=== PATIENT | male | born 1975 | race Hispanic/Latino ===

== ENCOUNTER 2017-07-07 10:51 | Emergency (ER) | payer SELFPAY ==
[2017-07-07 11:03] VITALS: BMI 27.1
[2017-07-07] MEDS ORDERED: Albuterol-Ipratrop 3 mg / 0.5 (3 ml) UD INH STA ×3 (11:14→12:53)
[2017-07-07] MEDS ORDERED: Albuterol-Ipratrop 3 mg / 0.5 (3 ml) UD ONE ×3 (11:21→12:55)
--- NOTE | 2017-07-07 11:32 | C.PDOC ---
History Of Present Illness 42 y/o male with Hx of Asthma presents to ED with complaints of worsening sob for 2 weeks. Patient reports using inhaler with limited improvement and reports cough with yellow sputum. Patient denies fever, recent steroid use, chest pain or any other complaints at this time. Time Seen by Provider: 07/07/17 11:09 Chief Complaint (Nursing): Shortness Of Breath History Per: Patient History/Exam Limitations: no limitations Onset/Duration Of Symptoms: Days Current Symptoms Are (Timing): Still Present Past Medical History Reviewed: Historical Data, Nursing Documentation, Vital Signs Vital Signs: Last Vital Signs Temp 97.9 F 07/07/17 13:31 Pulse 97 H 07/07/17 13:31 Resp 18 07/07/17 13:31 BP 129/78 07/07/17 13:31 Pulse Ox 98 07/07/17 13:31 - Medical History PMH: Asthma Surgical History: No Surg Hx - [facility] Procedures INJECT/INFUSE NEC (04/17/13) Family History: States: No Known Family Hx - Social History Hx Alcohol Use: No Hx Substance Use: No - Immunization History Hx Tetanus Toxoid Vaccination: No Hx Influenza Vaccination: No Hx Pneumococcal Vaccination: No Review Of Systems Except As Marked, All Systems Reviewed And Found Negative. Constitutional: Negative for: Fever, Chills Cardiovascular: Negative for: Chest Pain Respiratory: Positive for: Cough, Shortness of Breath Gastrointestinal: Negative for: Nausea, Vomiting Skin: Negative for: Rash Physical Exam - Physical Exam Appears: Non-toxic, No Acute Distress Skin: Normal Color, Warm, Dry, No Rash Head: Atraumatic, Normacephalic, No Swelling Eye(s): bilateral: Normal Inspection Oral Mucosa: Moist Throat: Normal, No Erythema Neck: Normal ROM, Supple Chest: Symmetrical Cardiovascular: Rhythm Regular, No Murmur Respiratory: No Rales, Rhonchi, Wheezing Gastrointestinal/Abdominal: Soft, No Tenderness, No Guarding, No Rebound Back: Normal Inspection, No CVA Tenderness Extremity: Normal ROM, No Pedal Edema, Capillary Refill (<2 seconds) Neurological/Psych: Oriented x3 Gait: Steady ED Course And Treatment O2 Sat by Pulse Oximetry: 96 (RA) Pulse Ox Interpretation: Normal Medical Decision Making Medical Decision Making: Will give prednisone and duoneb. Will get xray to r/o pneumonia. 12:44 Cxray shows L basilar atelectasis vs infiltrate. Patient is afebrile. After 3 duonebs and steroids, patient reports that he feels better and wheezing is resolved. Patient well appearing with normal vitals. Lungs now cta b/l. Repeat PF:600. Spoke with patient and at length and will treat community acquired pna as outpatient. Patient to return with any worsening symptoms. Disposition - Disposition Disposition: HOME/ ROUTINE Disposition Time: 12:44 Condition: GOOD Additional Instructions: Follow-up with PMD within 2 days. Take full course of antibiotics. Take prednisone. Return with any worsening symptoms. Prescriptions: Albuterol HFA [Ventolin HFA 90 mcg/actuation (8 g)] 2 puff IH [id number] #1 puff Albuterol 0.083% [Albuterol Sulfate 3 Ml] 3 ml IH Q6 #100 neb Azithromycin 250 mg PO DAILY #4 tablet Prednisone [Deltasone] 60 mg PO DAILY #9 tablet Instructions: Asthma (ED), Community Acquired Pneumonia (ED) Forms: [email or web address] (Pashto) - Clinical Impression Clinical Impression: Asthma, Pneumonia - PA / GAGGERMAN / Resident Statement MD/DO has examined the patient and agrees with the treatment plan. - Scribe Statement The provider has reviewed the documentation as recorded by the Nino Webb All medical record entries made by the Nino were at my direction and personally dictated by me. I have reviewed the chart and agree that the record accurately reflects my personal performance of the history, physical exam, medical decision making, and the department course for this patient. I have also personally directed, reviewed, and agree with the discharge instructions and disposition.
--- NOTE | 2017-07-07 11:36 | RAD ---
HISTORY: cough, asthma COMPARISON: None available. TECHNIQUE: Chest PA and lateral FINDINGS: LUNGS: Mild left basilar atelectasis or infiltrate. 4 mm left upper lobe probable calcified granuloma. Please note that chest x-ray has limited sensitivity for the detection of pulmonary masses. PLEURA: No significant pleural effusion identified. No definite pneumothorax . CARDIOVASCULAR: Heart size appears within normal limits. OSSEOUS STRUCTURES: No acute osseous abnormality identified. VISUALIZED UPPER ABDOMEN: Unremarkable. OTHER FINDINGS: None. IMPRESSION: Mild left basilar atelectasis or infiltrate.
[2017-07-07 13:32] VITALS: BP 129/78; PULSE 97; RESP 18; TEMP 97.9
[2017-07-07 13:47] VITALS: O2SAT 96
== END 2017-07-07 13:31 | disposition home or self-care (01) ==
LOC: C.ER 10:51
DX: J45.909 Unspecified asthma, uncomplicated (principal); J18.9 Pneumonia, unspecified organism

== ENCOUNTER 2017-10-30 10:25 | Emergency (ER) | payer SELFPAY ==
[2017-10-30 10:26] VITALS: BMI 27.1
[2017-10-30 10:42] VITALS: RESP 18
[2017-10-30] MEDS ORDERED: Albuterol-Ipratrop 3 mg / 0.5 (3 ml) UD IH SCH (11:00)
[2017-10-30] MEDS ORDERED: Albuterol-Ipratrop 3 mg / 0.5 (3 ml) UD ONE (11:04)
--- NOTE | 2017-10-30 12:20 | C.PDOC ---
History Of Present Illness 42 year old male, whose PMHx includes Asthma, presents to the ED for evaluation of cough, chest pressure and wheezing which began around 4 days ago. Patient also states he ran out of nebulizer medicine four days ago and is now unable to sleep due to symptoms. He denies fever, chills, nausea, vomiting. Time Seen by Provider: 10/30/17 10:40 Chief Complaint (Nursing): Cough, Cold, Congestion History Per: Patient History/Exam Limitations: no limitations Onset/Duration Of Symptoms: Days (4) Current Symptoms Are (Timing): Still Present Additional History Per: Patient Past Medical History Reviewed: Historical Data, Nursing Documentation, Vital Signs Vital Signs: Last Vital Signs Temp 98.1 F 10/30/17 12:25 Pulse 71 10/30/17 12:25 Resp 18 10/30/17 12:25 BP 128/85 10/30/17 12:25 Pulse Ox 98 10/30/17 12:45 - Medical History PMH: Asthma Surgical History: No Surg Hx - [facility] Procedures INJECT/INFUSE NEC (04/17/13) Family History: States: Unknown Family Hx - Social History Hx Alcohol Use: No Hx Substance Use: No - Immunization History Hx Tetanus Toxoid Vaccination: No Hx Influenza Vaccination: No Hx Pneumococcal Vaccination: No Review Of Systems Constitutional: Negative for: Fever, Chills Cardiovascular: Positive for: Other (chest pressure ) Respiratory: Positive for: Cough, Wheezing Gastrointestinal: Negative for: Nausea, Vomiting Physical Exam - Physical Exam Appears: Non-toxic, No Acute Distress Skin: Normal Color, Warm, Dry Head: Atraumatic, Normacephalic Eye(s): bilateral: Normal Inspection Ear(s): Bilateral: Normal Nose: Normal, No Discharge Oral Mucosa: Moist Throat: Normal, No Erythema, No Exudate Neck: Supple Chest: Symmetrical, No Deformity, No Tenderness Cardiovascular: Rhythm Regular, No Murmur Respiratory: No Rales, No Rhonchi, Wheezing (mild, bilaterally ) Neurological/Psych: Normal Speech, Normal Cognition ED Course And Treatment O2 Sat by Pulse Oximetry: 98 (on RA) Pulse Ox Interpretation: Normal Medical Decision Making Medical Decision Making: Impression: 42 year old male with cough, chest pressure and wheezing Plan: * Albuterol INH * Prednisone PO * reassess and disposition Progress: Albuterol INH and Prednisone PO administered. On reassessment, patient is resting comfortably, remains afebrile in the ED, and is showing no signs of distress. Patient is stable for discharge and is advised to follow up with PMD within 1-2 days for further evaluation and/or return to the ED if symptoms persist or worsen. Disposition Counseled Patient/Family Regarding: Diagnosis, Need For Followup, Rx Given - Disposition Disposition: HOME/ ROUTINE Disposition Time: 12:17 Condition: STABLE Prescriptions: Albuterol HFA [Ventolin HFA 90 mcg/actuation (8 g)] 1 puff IH QID PRN #1 puff PRN Reason: Cough predniSONE [Prednisone] 60 mg PO DAILY #12 tab Instructions: Asthma (ED) Forms: Gen Discharge Inst [place], [facility] [facility] ([place]an), Work Excuse - POA Present On Arrival: None - Clinical Impression Clinical Impression: Asthma, Influenza-like illness - Scribe Statement The provider has reviewed the documentation as recorded by the Scribe (Rosalina Alvarez) Provider Attestation: All medical record entries made by the Scribe were at my direction and personally dictated by me. I have reviewed the chart and agree that the record accurately reflects my personal performance of the history, physical exam, medical decision making, and the department course for this patient. I have also personally directed, reviewed, and agree with the discharge instructions and disposition.
[2017-10-30 12:33] VITALS: BP 128/85; PULSE 71; TEMP 98.1
[2017-10-30 12:41] VITALS: O2SAT 98
== END 2017-10-30 12:25 | disposition home or self-care (01) ==
LOC: C.ER 10:25
DX: J45.909 Unspecified asthma, uncomplicated (principal); J11.1 Influenza due to unidentified influenza virus with other respiratory manifestations